=== PATIENT | female | born 1980 | race Caucasian/White ===

== ENCOUNTER 2018-09-25 11:51 | Day surgery (SDC) | payer OTHER ==
[~2018-09-25] VITALS: Ht 165.1 cm; Wt 95.4 kg
[~2018-09-25 11:51] MED LIST: NIFE10CA PO; PREN1TAB49 PO
[2018-09-25] MEDS ORDERED: METOPROLOL (12:52)
[2018-09-25] MEDS ORDERED: OMEPRAZOLE (12:52)
[2018-09-25] MEDS ORDERED: DIGOXIN (12:52)
--- NOTE | 2018-09-25 13:17 | PREAC ---
Date/Time of Note Date/Time of Note DATE: 09/25/18 TIME: 13:16 Anesthesia Eval and Record Evaluation Time Pre-Procedure Interview DATE: 09/25/18 TIME: 13:16 Age 37 Sex female NPO: 8 hrs Preoperative diagnosis Abdominal Pain Planned procedure EGD Past Medical History Past Medical History: Includes Cardio: HTN, Dyslipidemia, CHF, Other (acemaker) GI: Obesity Surgery & Anesthesia Issues No known issue Meds Anticoagulation: No Beta Chandler within 24 hr: Yes Reported Medications [Omeprazole] No Conflict Check 09/25/18 [Metoprolol] No Conflict Check 09/25/18 [Digoxin] No Conflict Check 09/25/18 Nifedipine* (Procardia*) 10 Mg Capsule, 10 MG PO DAILY, #3 12/17/12 Vits W-Ca,Fe,Fa(<1MG) () 1 Tab Tablet, 1 TAB PO DAILY 12/17/12 Meds reviewed: Yes Allergies Coded Allergies: No Known Allergy (Unverified , 12/17/12) Allergies Reviewed: Yes Labs/Studies Labs Reviewed: Reviewed by anesthesiologist test: Negative Studies: ECG (n/a), CXR (n/a) Pre-procedure Exam Airway: Adequate mouth opening, Adequate thyromental dist Mallampati: Mallampati II Teeth: Normal Lung: Normal Heart: Normal ASA Physical Status ASA physical status: 3 Emergency: None Planned Anesthetic General/MAC: MAC Planned Pain Management Parenteral pain med Pre-operative Attestations Prior to commencing anesthesia and surgery, the patient was re-evaluated, there was verification of: *The patient's identity *The results of appropriate recent lab work and preoperative vital signs *The above evaluation not changing prior to induction *Anesthetic plan, risk benefits, alternative and complications discussed with patient/family; questions answered; patient/family understands, accepts and w ishes to proceed. ANA BAXTER MD Sep 25, 2018 13:17
[2018-09-25] MEDS ORDERED: PROPOFOL 20 ML ONE (13:25)
--- NOTE | 2018-09-25 13:25 | PAC ---
Date/Time of Note Date/Time of Note DATE: 09/25/18 TIME: 13:24 Post-Anesthesia Notes Post-Anesthesia Note Last documented vital signs T: 98.1 Activity: WNL Respiratory function: WNL Cardiovascular function: WNL Mental status: Baseline Pain reasonably controlled: Yes Hydration appropriate: Yes Nausea/Vomiting absent: Yes ANA BAXTER MD Sep 25, 2018 13:25
[2018-09-25 13:55] VITALS: BP 127/83; PULSE 68; RESP 15
== END 2018-09-25 13:35 | disposition home or self-care (01) ==
LOC: GIL 11:51
PROVIDERS: ATTEND Internal Medicine Gastroenterology
DX: K29.50 Unspecified chronic gastritis without bleeding (principal); K44.9 Diaphragmatic hernia without obstruction or gangrene; K21.9 Gastro-esophageal reflux disease without esophagitis; I11.0 Hypertensive heart disease with heart failure; I50.9 Heart failure, unspecified; E78.5 Hyperlipidemia, unspecified; Z95.0 Presence of cardiac pacemaker; E66.9 Obesity, unspecified; Z68.35 Body mass index [BMI] 35.0-35.9, adult
CPT/HCPCS: 43239; Z7610; 88305; 88312